=== PATIENT | female | born 1990 | race African-American/Black ===

== ENCOUNTER 2017-10-31 12:38 | Emergency (ER) | payer BC, SELFPAY ==
[2017-10-31] MEDS ORDERED: Dexamethasone 10 MG/ML VIAL ONE (15:44)
== END 2017-10-31 16:19 | disposition home or self-care (01) ==
LOC: ERS 12:38
DX: J02.9 Acute pharyngitis, unspecified (principal)
CPT/HCPCS: 87081; 87430; 96372; J1100